=== PATIENT | female | born 1985 | race Two or more races ===

== ENCOUNTER 2019-06-19 21:45 | Emergency (ER) | payer MEDICAID ==
[~2019-06-19] VITALS: Ht 160 cm; Wt 67.1 kg
[2019-06-19 23:24] LABS: Urine Bacteria FEW /hpf (None Seen); Urine Blood 2+ /uL (Negative); Urine Specific Gravity 1.003 (1.001-1.035); Urine WBC 52 /hpf (0 - 5)
[2019-06-20 00:25] VITALS: BP 149/78
== END 2019-06-20 00:27 | disposition home or self-care (01) ==
LOC: ER 21:48
DX: N39.0 Urinary tract infection, site not specified (principal)
CPT/HCPCS: 81001

== ENCOUNTER → 2021-09-09 | Outpatient (CLI) | payer MEDICAID | END | disposition home or self-care (01) | LOC: LAB 07:43 | PROVIDERS: ATTEND Nurse Practitioner | DX: Z20.822 Contact with and (suspected) exposure to COVID-19 (principal) | CPT/HCPCS: C9803; U0003 ==